=== PATIENT | male | born 1935 | race African-American/Black ===

== ENCOUNTER 2016-08-27 09:34 | Emergency (ER) | payer MEDICARE ==
--- NOTE | 2016-08-27 10:37 | RAD ---
LEFT WRIST THREE VIEWS: History: Wrist pain. 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 There are no signs of fracture or dislocation. IMPRESSION: Arthritic changes of the wrist. No acute findings. POS: [facility]
== END 2016-08-27 11:25 | disposition home or self-care (01) ==
LOC: NAV ERS 09:34
DX: M13.132 Monoarthritis, not elsewhere classified, left wrist (principal); Z79.82 Long term (current) use of aspirin; Z79.899 Other long term (current) drug therapy
CPT/HCPCS: 84550

== ENCOUNTER 2020-11-19 03:41 | Emergency (ER) | payer MEDICARE ==
[2020-11-19 04:06] LABS: Bilirubin Small (Negative); Blood, Urine Large (Negative); Clarity Cloudy (Clear); Glucose, Urine (Dipstick) Negative (Negative); Ketone, Urine Negative (Negative); Leukocyte Negative (Negative); Nitrite Negative (Negative); Protein, Urine (Dipstick) > or equal to 300 mg/dL (Neg-Trace); Urobilinogen 0.2 mg/dL (Less than 2)
[2020-11-19 04:07] LABS: Bacteria/HPF None Seen HPF (None Seen); RBC/HPF Greater than 50 HPF (0-3); Squamous Epithelial 0-3 HPF (0-3); WBC/HPF 0-3 HPF (0-3)
[2020-11-19] MEDS ORDERED: Sodium Chloride 0.9% 1,000 ML ONE (04:12)
[2020-11-19 04:17] LABS: #Basophils 0.1 thou/uL (0.0-0.2); #Eosinphils 0.2 thou/uL (0.0-0.7); #Lymphocytes 1.9 thou/uL (1.20-3.40); #Monocytes 0.5 thou/uL (0.11-0.59); #Neutrophils 1.9 thou/uL (1.40-6.50); %Basophils 1.2 % (0.0-1.0); %Eosinophils 3.4 % (0.0-10.0); %Lymphocytes 42.2 % (21.0-51.0); %Monocytes 11.6 % (0.0-10.0); %Neutrophils 41.6 % (42.0-75.0); Hemoglobin 13.5 g/dL (14.0-18.0); Mean Corpuscular HGB CONC 31.1 g/dL (32.0-36.0); Mean Corpuscular Volume 93.3 fL (78.0-98.0); Mean Platelet Volume 7.8 fL (7.4-10.4); Platelet Count 210 thou/uL (130-400); RBC Distribution Width 12.1 % (11.5-14.5); Red Blood Cell (RBC) Count 4.65 mill/uL (4.70-6.10); White Blood Cell (WBC) Count 4.5 thou/uL (4.8-10.8)
[2020-11-19 04:22] LABS: PTT 30.5 sec (22.9-36.1); Prothrombin Time 13.7 sec (12.0-14.7)
[2020-11-19 04:31] LABS: ALT (SGPT) 17 U/L (8-55); AST (SGOT) 16 U/L (5-34); Albumin 3.6 g/dL (3.4-4.8); Alkaline Phosphatase 86 U/L (40-110); Anion Gap 13 mmol/L (10-20); BUN (Urea Nitrogen) 16 mg/dL (8.4-25.7); Bilirubin, Total 0.3 mg/dL (0.2-1.2); Calc. Creatinine Clearance 0 mL/min (70-130); Calcium 8.9 mg/dL (7.8-10.44); Carbon Dioxide 20 mmol/L (23-31); Chloride 113 mmol/L (98-107); Glucose 105 mg/dL (83-110); Lipase 16 U/L (8-78); Potassium 3.9 mmol/L (3.5-5.1); Protein, Total 6.6 g/dL (5.8-8.1); Sodium 142 mmol/L (136-145)
[2020-11-19] MEDS ORDERED: Iopamidol 370 76% 100 ML VIAL ONE (09:00)
== END 2020-11-19 06:50 | disposition home or self-care (01) ==
LOC: NAV ERS 03:41
DX: R31.9 Hematuria, unspecified (principal); R00.1 Bradycardia, unspecified; I10 Essential (primary) hypertension; Z79.82 Long term (current) use of aspirin; Z79.899 Other long term (current) drug therapy
CPT/HCPCS: 74178; 80053; 81003; 81015; 83690; 85025; 85610; 85730; 87086; 93005; J7050; Q9967

== ENCOUNTER 2023-07-08 13:29 | Outpatient (CLI) | payer OTHER | END 2023-07-08 13:30 | disposition home or self-care (01) | LOC: NAV RAD 13:29 | PROVIDERS: ATTEND Family Medicine | DX: M25.561 Pain in right knee (principal); M17.11 Unilateral primary osteoarthritis, right knee ==